=== PATIENT | female | born 1990 | race Caucasian/White ===

== ENCOUNTER 2017-04-04 20:24 | Emergency (ER) | payer SELFPAY ==
[~2017-04-04] VITALS: Ht 162.6 cm; Wt 60.0 kg
[2017-04-04 21:39] VITALS: Ht 162.6 cm; Wt 60.0 kg
[2017-04-04] MEDS ORDERED: SOD CHLORIDE 0.9% 1,000 ML IV STA (22:23)
[2017-04-04] MEDS ORDERED: ACETAMINOPHEN 500 MG TAB PO STA (22:23)
[2017-04-04] MEDS ORDERED: LIDOCAINE/MYLANTA 40 ML BTL PO ONE (23:00)
--- NOTE | 2017-04-04 23:54 | RADRPT ---
PROCEDURE: XR Chest. CLINICAL INDICATION: Fever. TECHNIQUE: Portable AP upright view of the chest was obtained. COMPARISON: None. FINDINGS: The cardiomediastinal silhouette is within normal limits. The lungs are clear. There is no evidenc e for pleural effusion, pneumothorax or pulmonary vascular congestion. The osseous structures are i ntact with no evidence for acute abnormality. RPTAT:HJJR IMPRESSION: No evidence for acute intrathoracic pathology. Physician Danisha Date Time Electronically viewed and signed by Physician Danisha on 04/04/2017 23:54 JR/
[2017-04-05] MEDS ORDERED: IBUP-1542 PO (00:03)
[2017-04-05] MEDS ORDERED: AZIT250T94 PO (00:03)
[2017-04-05 00:09] VITALS: TEMP 98
--- NOTE | 2017-04-10 17:43 | ERD ---
ER Documentation Chief Complaint Chief Complaint SORE THROAT, BODY ACHES, FEVER SINCE YESTERDAY. SENT FROM URGENT CARE HPI Patient is a 27-year-old female presenting to the emergency department with complaints of sore throat, body aches, and fever. The patient went to an urgent care prior to coming here and was sent over for high fever. Patient's symptoms are constant and worsening. Symptoms began yesterday. She denies other times at this time. ROS All systems reviewed and are negative except as per history of present illness. Medications Home Meds Active Scripts Ranitidine Hcl* (Zantac*) 150 Mg Tablet, 150 MG PO BID Y for EPIGASTRIC PAIN, # 30 TAB Prov:CASSIA COPELAND PA-C 04/10/17 Dicyclomine Hcl* (Bentyl*) 10 Mg Capsule, 10 MG PO QID, #20 CAP Prov:CASSIA COPELAND PA-C 04/10/17 Ondansetron (Ondansetron Odt) 4 Mg Tab.rapdis, 4 MG PO Q6H Y for NAUSEA AND/OR VOMITING, #10 TAB Prov:CASSIA COPELAND PA-C 04/10/17 Ibuprofen* (Motrin*) 600 Mg Tab, 600 MG PO Q6, #30 TAB Prov:CINDY CURRAN PA-C 04/05/17 Azithromycin* (Zithromax*) 250 Mg Tablet, 250 MG PO .ZPACK DIRECTED, #6 TAB TAKE 500 MG (2 TABS) THE FIRST DAY THEN 250 MG (1 TAB) DAYS 2-5 Prov:CINDY CURRAN PA-C 04/05/17 Allergies Allergies: Coded Allergies: epinephrine (Verified Allergy, Unknown, 04/04/17) PMhx/Soc Medical and Surgical Hx: pt denies Medical Hx, pt denies Surgical Hx Hx Alcohol Use: No Hx Substance Use: No Hx Tobacco Use: No Smoking Status: Never smoker Physical Exam Physical Exam Const: Febrile female resting in the gurney in no acute distress. Head: Atraumatic Eyes: Normal Conjunctiva ENT: Normal External Ears, Nose and Mouth. There is mild tonsillar hypertrophy with erythema but no exudate present. The airway is clear. No uvular deviation. Neck: Full range of motion..~ No meningismus. Resp: Clear to auscultation bilaterally Cardio: Regular rate and rhythm, no murmurs Abd: Soft, non tender, non distended. Normal bowel sounds Skin: No petechiae or rashes Back: No midline or flank tenderness Ext: No cyanosis, or edema Neur: Awake and alert Psych: Normal Mood and Affect Results 24 hrs Laboratory Tests Test 04/04/17 22:40 White Blood Count 16.910^3/ul Red Blood Count 4.4410^6/ul Hemoglobin 12.0g/dl Hematocrit 37.2% Mean Corpuscular Volume 83.8fl Mean Corpuscular Hemoglobin 27.0pg Mean Corpuscular Hemoglobin Concent 32.3g/dl Red Cell Distribution Width 14.3% Platelet Count 97297^3/UL Mean Platelet Volume 10.4fl Neutrophils % 84.1% Lymphocytes % 8.9% Monocytes % 6.3% Eosinophils % 0.0% Basophils % 0.2% Nucleated Red Blood Cells % 0.0/100WBC Neutrophils # 14.210^3/ul Lymphocytes # 1.510^3/ul Monocytes # 1.110^3/ul Eosinophils # 0.010^3/ul Basophils # 0.010^3/ul Nucleated Red Blood Cells # 0.010^3/ul Urine Color YELLOW Urine Clarity SLIGHTLY CLOUDY Urine pH 7.0 Urine Specific [place] 1.019 Urine Ketones 1+mg/dL Urine Nitrite NEGATIVEmg/dL Urine Bilirubin NEGATIVEmg/dL Urine Urobilinogen NEGATIVEmg/dL Urine Leukocyte Esterase NEGATIVELeu/ul Urine Microscopic RBC 6/HPF Urine Microscopic WBC 18/HPF Urine Squamous Epithelial Cells FEW/HPF Urine Bacteria FEW/HPF Urine Mucus FEW/HPF Urine Hemoglobin 1+mg/dL Urine Glucose NEGATIVEmg/dL Urine Total Protein 1+mg/dl Sodium Level 138mmol/L Potassium Level 3.2mmol/L Chloride Level 101mmol/L Carbon Dioxide Level 22mmol/L Anion Gap 18 Blood Urea Nitrogen 9mg/dl Creatinine 0.85mg/dl Glucose Level 114mg/dl Calcium Level 9.1mg/dl Total Bilirubin 0.2mg/dl Direct Bilirubin 0.00mg/dl Indirect Bilirubin 0.2mg/dl Aspartate Amino Transf (AST/SGOT) 23IU/L Alanine Aminotransferase (ALT/SGPT) 28IU/L Alkaline Phosphatase 136IU/L Total Protein 7.8g/dl Albumin 4.3g/dl Globulin 3.50g/dl Albumin/Globulin Ratio 1.22 Current Medications Medications (Trade) Dose Ordered Sig/Nani Route PRN Reason Start Time Stop Time Status Last Admin Dose Admin Sodium Chloride (NS) 1,000 ml @ 1,000 mls/hr Q1H STAT IV 04/04/17 22:23 04/04/17 23:22 DC 04/04/17 22:52 Acetaminophen (Tylenol Tab) 1,000 mg ONCE STAT PO 04/04/17 22:23 04/04/17 22:26 DC 04/04/17 22:52 Miscellaneous Medication (Gi Cocktail (2)) 40 ml ONCE ONCE PO 04/04/17 23:00 04/04/17 23:28 DC Procedures/MDM 27-year-old female presenting to the emergency department complaints of fever, body aches, and sore throat. Patient was found to have a temperature of 105.5 F on initial presentation she was also tachycardic. She was placed on a gurney. IV line established, she was given IV fluids and p.o. Tylenol. She was feeling improved on reevaluation and her temperature decreased. Laboratory studies showed leukocytosis on CBC with a left shift. Chemistry panel showed slightly decreased potassium of 3.2, but not significant. No other significant abnormalities noted on chemistry panel. Urinalysis showed no signs of infection. Chest x-ray showed no signs of acute intrathoracic pathology. Rapid strep is negative. Influenza a and B swab negative. Patient's symptoms are likely secondary to a viral syndrome. However, given her high fever and erythematous posterior pharynx, I will give her a prescription for antibiotics. She is also advised to take Tylenol and ibuprofen for fever. Pt/family in agreement with discharge plan/diagnosis. Pt/family advised to return immediately with any new or worsening symptoms. Follow-up with primary care physician within the next 1-2 days. Disclaimer: Inadvertent spelling and grammatical errors are likely due to EHR/ dictation software use and do not reflect on the overall quality of patient care. Also, please note that the electronic time recorded on this note does not necessarily reflect the actual time of the patient encounter. PROCEDURE: XR Chest. CLINICAL INDICATION: Fever. TECHNIQUE: Portable AP upright view of the chest was obtained. COMPARISON: None. FINDINGS: The cardiomediastinal silhouette is within normal limits. The lungs are clear. There is no evidence for pleural effusion, pneumothorax or pulmonary vascular congestion. The osseous structures are intact with no evidence for acute abnormality. RPTAT:HJJR IMPRESSION: No evidence for acute intrathoracic pathology. Physician Danisha Date Time Electronically viewed and signed by Eduardo Diaz Physician on 04/04/2017 23:54 Departure Diagnosis: Primary Impression: Pharyngitis Pharyngitis/tonsillitis etiology: unspecified etiology Qualified Code: J02.9 - Pharyngitis, unspecified etiology Condition: Fair Patient Instructions: Pharyngitis, Report Pending Referrals: [facility] YOU HAVE RECEIVED A MEDICAL SCREENING EXAM AND THE RESULTS INDICATE THAT YOU DO NOT HAVE A CONDITION THAT REQUIRES URGENT TREATMENT IN THE EMERGENCY DEPARTMENT. FURTHER EVALUATION AND TREATMENT OF YOUR CONDITION CAN WAIT UNTIL YOU ARE SEEN IN YOUR DOCTORS OFFICE WITHIN THE NEXT 1-2 DAYS. IT IS YOUR RESPONSIBILITY TO MAKE AN APPOINTMENT FOR FOLOW-UP CARE. IF YOU HAVE A PRIMARY DOCTOR --you should call your primary doctor and schedule an appointment IF YOU DO NOT HAVE A PRIMARY DOCTOR YOU CAN CALL OUR PHYSICIAN REFERRAL HOTLINE AT IF YOU CAN NOT AFFORD TO SEE A PHYSICIAN YOU CAN CHOSE FROM THE FOLLOWING [facility] [address] [facility] [facility] [address] [facility] [address] [facility]. [facility] [address] [facility]. [facility] [address] [facility]. [facility]. [address] Additional Instructions: Follow up with your PCP within the next 1-3 days for a repeat evaluation. If you require a referral to a specialist, your Primary Care Provider may be able to provide this for you. In most patient cases, a referral is not required. If you have further questions regarding this matter, please ask your Primary Care Provider. Return the the emergency department immediately if symptoms worsen or change. If you have any questions regarding medications, ask your pharmacist or us before you leave. If any adverse reactions, occur while taking your medications, discontinue the treatment and return to the emergency department immediately. If any new or worsening symptoms, uncontrolled fevers, or other unexplained symptoms occur, return to the emergency department immediately. Take your medications as directed, and complete the entire course of treatment. CINDY CURRAN PA-C Apr 10, 2017 17:43
--- NOTE | 2017-04-10 17:43 | ERD ---
ER Documentation Chief Complaint Chief Complaint SORE THROAT, BODY ACHES, FEVER SINCE YESTERDAY. SENT FROM URGENT CARE HPI Patient is a 27-year-old female presenting to the emergency department with complaints of sore throat, body aches, and fever. The patient went to an urgent care prior to coming here and was sent over for high fever. Patient's symptoms are constant and worsening. Symptoms began yesterday. She denies other times at this time. ROS All systems reviewed and are negative except as per history of present illness. Medications Home Meds Active Scripts Ranitidine Hcl* (Zantac*) 150 Mg Tablet, 150 MG PO BID Y for EPIGASTRIC PAIN, # 30 TAB Prov:CASSIA COPELAND PA-C 04/10/17 Dicyclomine Hcl* (Bentyl*) 10 Mg Capsule, 10 MG PO QID, #20 CAP Prov:CASSIA COPELAND PA-C 04/10/17 Ondansetron (Ondansetron Odt) 4 Mg Tab.rapdis, 4 MG PO Q6H Y for NAUSEA AND/OR VOMITING, #10 TAB Prov:CASSIA COPELAND PA-C 04/10/17 Ibuprofen* (Motrin*) 600 Mg Tab, 600 MG PO Q6, #30 TAB Prov:CINDY CURRAN PA-C 04/05/17 Azithromycin* (Zithromax*) 250 Mg Tablet, 250 MG PO .ZPACK DIRECTED, #6 TAB TAKE 500 MG (2 TABS) THE FIRST DAY THEN 250 MG (1 TAB) DAYS 2-5 Prov:CINDY CURRAN PA-C 04/05/17 Allergies Allergies: Coded Allergies: epinephrine (Verified Allergy, Unknown, 04/04/17) PMhx/Soc Medical and Surgical Hx: pt denies Medical Hx, pt denies Surgical Hx Hx Alcohol Use: No Hx Substance Use: No Hx Tobacco Use: No Smoking Status: Never smoker Physical Exam Physical Exam Const: Febrile female resting in the gurney in no acute distress. Head: Atraumatic Eyes: Normal Conjunctiva ENT: Normal External Ears, Nose and Mouth. There is mild tonsillar hypertrophy with erythema but no exudate present. The airway is clear. No uvular deviation. Neck: Full range of motion..~ No meningismus. Resp: Clear to auscultation bilaterally Cardio: Regular rate and rhythm, no murmurs Abd: Soft, non tender, non distended. Normal bowel sounds Skin: No petechiae or rashes Back: No midline or flank tenderness Ext: No cyanosis, or edema Neur: Awake and alert Psych: Normal Mood and Affect Results 24 hrs Laboratory Tests Test 04/04/17 22:40 White Blood Count 16.910^3/ul Red Blood Count 4.4410^6/ul Hemoglobin 12.0g/dl Hematocrit 37.2% Mean Corpuscular Volume 83.8fl Mean Corpuscular Hemoglobin 27.0pg Mean Corpuscular Hemoglobin Concent 32.3g/dl Red Cell Distribution Width 14.3% Platelet Count 72276^3/UL Mean Platelet Volume 10.4fl Neutrophils % 84.1% Lymphocytes % 8.9% Monocytes % 6.3% Eosinophils % 0.0% Basophils % 0.2% Nucleated Red Blood Cells % 0.0/100WBC Neutrophils # 14.210^3/ul Lymphocytes # 1.510^3/ul Monocytes # 1.110^3/ul Eosinophils # 0.010^3/ul Basophils # 0.010^3/ul Nucleated Red Blood Cells # 0.010^3/ul Urine Color YELLOW Urine Clarity SLIGHTLY CLOUDY Urine pH 7.0 Urine Specific Pride 1.019 Urine Ketones 1+mg/dL Urine Nitrite NEGATIVEmg/dL Urine Bilirubin NEGATIVEmg/dL Urine Urobilinogen NEGATIVEmg/dL Urine Leukocyte Esterase NEGATIVELeu/ul Urine Microscopic RBC 6/HPF Urine Microscopic WBC 18/HPF Urine Squamous Epithelial Cells FEW/HPF Urine Bacteria FEW/HPF Urine Mucus FEW/HPF Urine Hemoglobin 1+mg/dL Urine Glucose NEGATIVEmg/dL Urine Total Protein 1+mg/dl Sodium Level 138mmol/L Potassium Level 3.2mmol/L Chloride Level 101mmol/L Carbon Dioxide Level 22mmol/L Anion Gap 18 Blood Urea Nitrogen 9mg/dl Creatinine 0.85mg/dl Glucose Level 114mg/dl Calcium Level 9.1mg/dl Total Bilirubin 0.2mg/dl Direct Bilirubin 0.00mg/dl Indirect Bilirubin 0.2mg/dl Aspartate Amino Transf (AST/SGOT) 23IU/L Alanine Aminotransferase (ALT/SGPT) 28IU/L Alkaline Phosphatase 136IU/L Total Protein 7.8g/dl Albumin 4.3g/dl Globulin 3.50g/dl Albumin/Globulin Ratio 1.22 Current Medications Medications (Trade) Dose Ordered Sig/Nani Route PRN Reason Start Time Stop Time Status Last Admin Dose Admin Sodium Chloride (NS) 1,000 ml @ 1,000 mls/hr Q1H STAT IV 04/04/17 22:23 04/04/17 23:22 DC 04/04/17 22:52 Acetaminophen (Tylenol Tab) 1,000 mg ONCE STAT PO 04/04/17 22:23 04/04/17 22:26 DC 04/04/17 22:52 Miscellaneous Medication (Gi Cocktail (2)) 40 ml ONCE ONCE PO 04/04/17 23:00 04/04/17 23:28 DC Procedures/MDM 27-year-old female presenting to the emergency department complaints of fever, body aches, and sore throat. Patient was found to have a temperature of 105.5 F on initial presentation she was also tachycardic. She was placed on a gurney. IV line established, she was given IV fluids and p.o. Tylenol. She was feeling improved on reevaluation and her temperature decreased. Laboratory studies showed leukocytosis on CBC with a left shift. Chemistry panel showed slightly decreased potassium of 3.2, but not significant. No other significant abnormalities noted on chemistry panel. Urinalysis showed no signs of infection. Chest x-ray showed no signs of acute intrathoracic pathology. Rapid strep is negative. Influenza a and B swab negative. Patient's symptoms are likely secondary to a viral syndrome. However, given her high fever and erythematous posterior pharynx, I will give her a prescription for antibiotics. She is also advised to take Tylenol and ibuprofen for fever. Pt/family in agreement with discharge plan/diagnosis. Pt/family advised to return immediately with any new or worsening symptoms. Follow-up with primary care physician within the next 1-2 days. Disclaimer: Inadvertent spelling and grammatical errors are likely due to EHR/ dictation software use and do not reflect on the overall quality of patient care. Also, please note that the electronic time recorded on this note does not necessarily reflect the actual time of the patient encounter. PROCEDURE: XR Chest. CLINICAL INDICATION: Fever. TECHNIQUE: Portable AP upright view of the chest was obtained. COMPARISON: None. FINDINGS: The cardiomediastinal silhouette is within normal limits. The lungs are clear. There is no evidence for pleural effusion, pneumothorax or pulmonary vascular congestion. The osseous structures are intact with no evidence for acute abnormality. RPTAT:HJJR IMPRESSION: No evidence for acute intrathoracic pathology. Physician Danisha Date Time Electronically viewed and signed by Eduardo Diaz Physician on 04/04/2017 23:54 Departure Diagnosis: Primary Impression: Pharyngitis Pharyngitis/tonsillitis etiology: unspecified etiology Qualified Code: J02.9 - Pharyngitis, unspecified etiology Condition: Fair Patient Instructions: Pharyngitis, Report Pending Referrals: [facility] YOU HAVE RECEIVED A MEDICAL SCREENING EXAM AND THE RESULTS INDICATE THAT YOU DO NOT HAVE A CONDITION THAT REQUIRES URGENT TREATMENT IN THE EMERGENCY DEPARTMENT. FURTHER EVALUATION AND TREATMENT OF YOUR CONDITION CAN WAIT UNTIL YOU ARE SEEN IN YOUR DOCTORS OFFICE WITHIN THE NEXT 1-2 DAYS. IT IS YOUR RESPONSIBILITY TO MAKE AN APPOINTMENT FOR FOLOW-UP CARE. IF YOU HAVE A PRIMARY DOCTOR --you should call your primary doctor and schedule an appointment IF YOU DO NOT HAVE A PRIMARY DOCTOR YOU CAN CALL OUR PHYSICIAN REFERRAL HOTLINE AT IF YOU CAN NOT AFFORD TO SEE A PHYSICIAN YOU CAN CHOSE FROM THE FOLLOWING [facility] [address] [facility]. [facility] [address] [facility]. [facility] [address] [facility] [address] [facility]. [facility] [address] [facility]. [facility]. [address] Additional Instructions: Follow up with your PCP within the next 1-3 days for a repeat evaluation. If you require a referral to a specialist, your Primary Care Provider may be able to provide this for you. In most patient cases, a referral is not required. If you have further questions regarding this matter, please ask your Primary Care Provider. Return the the emergency department immediately if symptoms worsen or change. If you have any questions regarding medications, ask your pharmacist or us before you leave. If any adverse reactions, occur while taking your medications, discontinue the treatment and return to the emergency department immediately. If any new or worsening symptoms, uncontrolled fevers, or other unexplained symptoms occur, return to the emergency department immediately. Take your medications as directed, and complete the entire course of treatment. CINDY CURRAN PA-C Apr 10, 2017 17:43
--- NOTE | 2017-04-10 17:43 | ERD ---
ER Documentation Chief Complaint Chief Complaint SORE THROAT, BODY ACHES, FEVER SINCE YESTERDAY. SENT FROM URGENT CARE HPI Patient is a 27-year-old female presenting to the emergency department with complaints of sore throat, body aches, and fever. The patient went to an urgent care prior to coming here and was sent over for high fever. Patient's symptoms are constant and worsening. Symptoms began yesterday. She denies other times at this time. ROS All systems reviewed and are negative except as per history of present illness. Medications Home Meds Active Scripts Ranitidine Hcl* (Zantac*) 150 Mg Tablet, 150 MG PO BID Y for EPIGASTRIC PAIN, # 30 TAB Prov:CASSIA COPELAND PA-C 04/10/17 Dicyclomine Hcl* (Bentyl*) 10 Mg Capsule, 10 MG PO QID, #20 CAP Prov:CASSIA COPELAND PA-C 04/10/17 Ondansetron (Ondansetron Odt) 4 Mg Tab.rapdis, 4 MG PO Q6H Y for NAUSEA AND/OR VOMITING, #10 TAB Prov:CASSIA COPELAND PA-C 04/10/17 Ibuprofen* (Motrin*) 600 Mg Tab, 600 MG PO Q6, #30 TAB Prov:CINDY CURRAN PA-C 04/05/17 Azithromycin* (Zithromax*) 250 Mg Tablet, 250 MG PO .ZPACK DIRECTED, #6 TAB TAKE 500 MG (2 TABS) THE FIRST DAY THEN 250 MG (1 TAB) DAYS 2-5 Prov:CINDY CURRAN PA-C 04/05/17 Allergies Allergies: Coded Allergies: epinephrine (Verified Allergy, Unknown, 04/04/17) PMhx/Soc Medical and Surgical Hx: pt denies Medical Hx, pt denies Surgical Hx Hx Alcohol Use: No Hx Substance Use: No Hx Tobacco Use: No Smoking Status: Never smoker Physical Exam Physical Exam Const: Febrile female resting in the gurney in no acute distress. Head: Atraumatic Eyes: Normal Conjunctiva ENT: Normal External Ears, Nose and Mouth. There is mild tonsillar hypertrophy with erythema but no exudate present. The airway is clear. No uvular deviation. Neck: Full range of motion..~ No meningismus. Resp: Clear to auscultation bilaterally Cardio: Regular rate and rhythm, no murmurs Abd: Soft, non tender, non distended. Normal bowel sounds Skin: No petechiae or rashes Back: No midline or flank tenderness Ext: No cyanosis, or edema Neur: Awake and alert Psych: Normal Mood and Affect Results 24 hrs Laboratory Tests Test 04/04/17 22:40 White Blood Count 16.910^3/ul Red Blood Count 4.4410^6/ul Hemoglobin 12.0g/dl Hematocrit 37.2% Mean Corpuscular Volume 83.8fl Mean Corpuscular Hemoglobin 27.0pg Mean Corpuscular Hemoglobin Concent 32.3g/dl Red Cell Distribution Width 14.3% Platelet Count 52619^3/UL Mean Platelet Volume 10.4fl Neutrophils % 84.1% Lymphocytes % 8.9% Monocytes % 6.3% Eosinophils % 0.0% Basophils % 0.2% Nucleated Red Blood Cells % 0.0/100WBC Neutrophils # 14.210^3/ul Lymphocytes # 1.510^3/ul Monocytes # 1.110^3/ul Eosinophils # 0.010^3/ul Basophils # 0.010^3/ul Nucleated Red Blood Cells # 0.010^3/ul Urine Color YELLOW Urine Clarity SLIGHTLY CLOUDY Urine pH 7.0 Urine Specific [place] 1.019 Urine Ketones 1+mg/dL Urine Nitrite NEGATIVEmg/dL Urine Bilirubin NEGATIVEmg/dL Urine Urobilinogen NEGATIVEmg/dL Urine Leukocyte Esterase NEGATIVELeu/ul Urine Microscopic RBC 6/HPF Urine Microscopic WBC 18/HPF Urine Squamous Epithelial Cells FEW/HPF Urine Bacteria FEW/HPF Urine Mucus FEW/HPF Urine Hemoglobin 1+mg/dL Urine Glucose NEGATIVEmg/dL Urine Total Protein 1+mg/dl Sodium Level 138mmol/L Potassium Level 3.2mmol/L Chloride Level 101mmol/L Carbon Dioxide Level 22mmol/L Anion Gap 18 Blood Urea Nitrogen 9mg/dl Creatinine 0.85mg/dl Glucose Level 114mg/dl Calcium Level 9.1mg/dl Total Bilirubin 0.2mg/dl Direct Bilirubin 0.00mg/dl Indirect Bilirubin 0.2mg/dl Aspartate Amino Transf (AST/SGOT) 23IU/L Alanine Aminotransferase (ALT/SGPT) 28IU/L Alkaline Phosphatase 136IU/L Total Protein 7.8g/dl Albumin 4.3g/dl Globulin 3.50g/dl Albumin/Globulin Ratio 1.22 Current Medications Medications (Trade) Dose Ordered Sig/Nani Route PRN Reason Start Time Stop Time Status Last Admin Dose Admin Sodium Chloride (NS) 1,000 ml @ 1,000 mls/hr Q1H STAT IV 04/04/17 22:23 04/04/17 23:22 DC 04/04/17 22:52 Acetaminophen (Tylenol Tab) 1,000 mg ONCE STAT PO 04/04/17 22:23 04/04/17 22:26 DC 04/04/17 22:52 Miscellaneous Medication (Gi Cocktail (2)) 40 ml ONCE ONCE PO 04/04/17 23:00 04/04/17 23:28 DC Procedures/MDM 27-year-old female presenting to the emergency department complaints of fever, body aches, and sore throat. Patient was found to have a temperature of 105.5 F on initial presentation she was also tachycardic. She was placed on a gurney. IV line established, she was given IV fluids and p.o. Tylenol. She was feeling improved on reevaluation and her temperature decreased. Laboratory studies showed leukocytosis on CBC with a left shift. Chemistry panel showed slightly decreased potassium of 3.2, but not significant. No other significant abnormalities noted on chemistry panel. Urinalysis showed no signs of infection. Chest x-ray showed no signs of acute intrathoracic pathology. Rapid strep is negative. Influenza a and B swab negative. Patient's symptoms are likely secondary to a viral syndrome. However, given her high fever and erythematous posterior pharynx, I will give her a prescription for antibiotics. She is also advised to take Tylenol and ibuprofen for fever. Pt/family in agreement with discharge plan/diagnosis. Pt/family advised to return immediately with any new or worsening symptoms. Follow-up with primary care physician within the next 1-2 days. Disclaimer: Inadvertent spelling and grammatical errors are likely due to EHR/ dictation software use and do not reflect on the overall quality of patient care. Also, please note that the electronic time recorded on this note does not necessarily reflect the actual time of the patient encounter. PROCEDURE: XR Chest. CLINICAL INDICATION: Fever. TECHNIQUE: Portable AP upright view of the chest was obtained. COMPARISON: None. FINDINGS: The cardiomediastinal silhouette is within normal limits. The lungs are clear. There is no evidence for pleural effusion, pneumothorax or pulmonary vascular congestion. The osseous structures are intact with no evidence for acute abnormality. RPTAT:HJJR IMPRESSION: No evidence for acute intrathoracic pathology. Physician Danisha Date Time Electronically viewed and signed by Eduardo Diaz Physician on 04/04/2017 23:54 Departure Diagnosis: Primary Impression: Pharyngitis Pharyngitis/tonsillitis etiology: unspecified etiology Qualified Code: J02.9 - Pharyngitis, unspecified etiology Condition: Fair Patient Instructions: Pharyngitis, Report Pending Referrals: [facility] YOU HAVE RECEIVED A MEDICAL SCREENING EXAM AND THE RESULTS INDICATE THAT YOU DO NOT HAVE A CONDITION THAT REQUIRES URGENT TREATMENT IN THE EMERGENCY DEPARTMENT. FURTHER EVALUATION AND TREATMENT OF YOUR CONDITION CAN WAIT UNTIL YOU ARE SEEN IN YOUR DOCTORS OFFICE WITHIN THE NEXT 1-2 DAYS. IT IS YOUR RESPONSIBILITY TO MAKE AN APPOINTMENT FOR FOLOW-UP CARE. IF YOU HAVE A PRIMARY DOCTOR --you should call your primary doctor and schedule an appointment IF YOU DO NOT HAVE A PRIMARY DOCTOR YOU CAN CALL OUR PHYSICIAN REFERRAL HOTLINE AT IF YOU CAN NOT AFFORD TO SEE A PHYSICIAN YOU CAN CHOSE FROM THE FOLLOWING [facility] [address] [facility]. [facility] [address] [facility] [address]. [facility] [address] [facility] [address] [facility]. [facility]. [address] Additional Instructions: Follow up with your PCP within the next 1-3 days for a repeat evaluation. If you require a referral to a specialist, your Primary Care Provider may be able to provide this for you. In most patient cases, a referral is not required. If you have further questions regarding this matter, please ask your Primary Care Provider. Return the the emergency department immediately if symptoms worsen or change. If you have any questions regarding medications, ask your pharmacist or us before you leave. If any adverse reactions, occur while taking your medications, discontinue the treatment and return to the emergency department immediately. If any new or worsening symptoms, uncontrolled fevers, or other unexplained symptoms occur, return to the emergency department immediately. Take your medications as directed, and complete the entire course of treatment. CINDY CURRAN PA-C Apr 10, 2017 17:43
== END 2017-04-05 00:09 | disposition home or self-care (01) ==
LOC: FTE 20:24
DX: J02.9 Acute pharyngitis, unspecified (principal); R50.9 Fever, unspecified
CPT/HCPCS: 36415; 71010; 80053; 81001; 85025; 87400; 87880; 99284; J7030

== ENCOUNTER 2017-04-10 10:53 | Emergency (ER) | payer SELFPAY ==
[~2017-04-10] VITALS: Ht 162.6 cm; Wt 57.5 kg
[~2017-04-10 10:53] MED LIST: AZIT250T94 PO; IBUP-1542 PO
[2017-04-10 11:01] VITALS: Ht 162.6 cm; Wt 57.5 kg
[2017-04-10] MEDS ORDERED: SOD CHLORIDE 0.9% 1,000 ML IV STA (11:56)
[2017-04-10] MEDS ORDERED: morphine 2 MG INJ IV STA (11:56)
[2017-04-10] MEDS ORDERED: ONDANSETRON 4 MG INJ IV STA ×2 (11:56→13:40)
[2017-04-10 12:29] LABS: BASOPHILS % 0.4 % (0.0-2.0); EOSINOPHILS # 0.1 10^3/ul (0.0-0.5); EOSINOPHILS % 0.6 % (0.0-7.0); HEMATOCRIT 41.6 % (37.0-47.0); HEMOGLOBIN 13.2 g/dl (12.0-16.0); LYMPHOCYTES # 1.1 10^3/ul (0.8-2.9); LYMPHOCYTES % 10.2 % (15.0-51.0); MEAN CORPUSCULAR HEMOGLOBIN 26.7 pg (29.0-33.0); MEAN CORPUSCULAR HGB CONC 31.7 g/dl (32.0-37.0); MEAN PLATELET VOLUME 9.8 fl (7.4-10.4); MONOCYTE # 0.4 10^3/ul (0.3-0.9); MONOCYTES % 3.7 % (0.0-11.0); NEUTROPHIL # 8.8 10^3/ul (1.6-7.5); NEUTROPHILS % 84.7 % (39.0-77.0); PLATELET COUNT 368 10^3/UL (140-415); RED BLOOD COUNT 4.95 10^6/ul (4.20-5.40); RED CELL DISTRIBUTION WIDTH 14.3 % (11.5-14.5); WHITE BLOOD COUNT 10.4 10^3/ul (4.8-10.8)
[2017-04-10] MEDS ORDERED: FAMOTIDINE 20 MG INJ IV ONE (12:30)
[2017-04-10 12:48] LABS: ALBUMIN/GLOBULIN RATIO 1.35; BILIRUBIN,INDIRECT 0.3 mg/dl (0-1.1); BILIRUBIN,TOTAL 0.3 mg/dl (0.2-1.3); CREATININE 0.69 mg/dl (0.44-1.00); POTASSIUM 4.4 mmol/L (3.5-5.1); TOTAL PROTEIN 8.7 g/dl (6.1-8.1)
--- NOTE | 2017-04-10 12:55 | ERD ---
ER Documentation Chief Complaint Chief Complaint ap w/n/v/d x1 day HPI 27-year-old female presents with mid abdominal pain described as sharp, colicky with nausea, vomiting and diarrhea over the last 2-3 days. The patient was seen here several days ago and was referred from the urgent care due to high fever, she had a fever of 105 and had a workup done and was treated presumptively with a Z-Tai and she is no longer been febrile. She reports up to 5 episodes of nonbloody nonbilious emesis each day up to 2-3 episodes of diarrhea that are nonbloody non-mucousy. Pain is in the mid abdomen, goes through the left upper quadrant is intermittent and worse after eating. She denies chest pain, shortness of breath. ROS All systems reviewed and are negative except as per history of present illness. Medications Home Meds Active Scripts Ranitidine Hcl* (Zantac*) 150 Mg Tablet, 150 MG PO BID Y for EPIGASTRIC PAIN, # 30 TAB Prov:CASSIA COPELAND PA-C 04/10/17 Dicyclomine Hcl* (Bentyl*) 10 Mg Capsule, 10 MG PO QID, #20 CAP Prov:CASSIA COPELAND PA-C 04/10/17 Ondansetron (Ondansetron Odt) 4 Mg Tab.rapdis, 4 MG PO Q6H Y for NAUSEA AND/OR VOMITING, #10 TAB Prov:CASSIA COPELAND PA-C 04/10/17 Ibuprofen* (Motrin*) 600 Mg Tab, 600 MG PO Q6, #30 TAB Prov:CINDY CURRAN PA-C 04/05/17 Azithromycin* (Zithromax*) 250 Mg Tablet, 250 MG PO .ZPACK DIRECTED, #6 TAB TAKE 500 MG (2 TABS) THE FIRST DAY THEN 250 MG (1 TAB) DAYS 2-5 Prov:CINDY CURRAN PA-C 04/05/17 Allergies Allergies: Coded Allergies: epinephrine (Verified Allergy, Unknown, 04/04/17) PMhx/Soc Medical and Surgical Hx: pt denies Medical Hx, pt denies Surgical Hx Hx Alcohol Use: No Hx Substance Use: No Hx Tobacco Use: No Physical Exam Vitals Vital Signs Date Time Temp Pulse Resp B/P Pulse Ox O2 Delivery O2 Flow Rate FiO2 04/10/17 11:01 99.0 110 20 121/77 99 Physical Exam General: Well-developed, well-nourished. The patient appears in no acute distress. HEENT: Head is normocephalic, atraumatic. No scleral icterus. Neck: Supple. Nontender. Lungs: Clear to auscultation. Normal air movement. Heart: Regular rate and rhythm. S1 and S2 are normal. No murmurs, gallops, or rubs. Abdomen: Soft, mid and left upper quadrant is tender, there are no peritoneal signs, no masses, no hepatosplenomegaly, negative Nicolas sign, no McBurney's tenderness, nondistended. Bowel sounds are normoactive. Extremities: No clubbing or cyanosis. Normal pulses. Moving extremities x 4. No weakness. Neurologic: Alert and oriented 3. No focal deficits. Skin: Normal turgor. No rash or lesions. Result Diagram: 04/10/17 1215 04/10/17 1215 Results 24 hrs Laboratory Tests Test 04/10/17 12:15 04/10/17 13:45 White Blood Count 10.410^3/ul Red Blood Count 4.9510^6/ul Hemoglobin 13.2g/dl Hematocrit 41.6% Mean Corpuscular Volume 84.0fl Mean Corpuscular Hemoglobin 26.7pg Mean Corpuscular Hemoglobin Concent 31.7g/dl Red Cell Distribution Width 14.3% Platelet Count 95922^3/UL Mean Platelet Volume 9.8fl Neutrophils % 84.7% Lymphocytes % 10.2% Monocytes % 3.7% Eosinophils % 0.6% Basophils % 0.4% Nucleated Red Blood Cells % 0.0/100WBC Neutrophils # 8.810^3/ul Lymphocytes # 1.110^3/ul Monocytes # 0.410^3/ul Eosinophils # 0.110^3/ul Basophils # 0.010^3/ul Nucleated Red Blood Cells # 0.010^3/ul Sodium Level 143mmol/L Potassium Level 4.4mmol/L Chloride Level 103mmol/L Carbon Dioxide Level 24mmol/L Anion Gap 20 Blood Urea Nitrogen 9mg/dl Creatinine 0.69mg/dl Glucose Level 97mg/dl Calcium Level 10.0mg/dl Total Bilirubin 0.3mg/dl Direct Bilirubin 0.00mg/dl Indirect Bilirubin 0.3mg/dl Aspartate Amino Transf (AST/SGOT) 20IU/L Alanine Aminotransferase (ALT/SGPT) 28IU/L Alkaline Phosphatase 144IU/L Total Protein 8.7g/dl Albumin 5.0g/dl Globulin 3.70g/dl Albumin/Globulin Ratio 1.35 Lipase 170U/L Serum HCG, Qualitative NEGATIVE Urine Color YELLOW Urine Clarity CLEAR Urine pH 7.0 Urine Specific [place] 1.014 Urine Ketones TRACEmg/dL Urine Nitrite NEGATIVEmg/dL Urine Bilirubin NEGATIVEmg/dL Urine Urobilinogen NEGATIVEmg/dL Urine Leukocyte Esterase NEGATIVELeu/ul Urine Hemoglobin NEGATIVEmg/dL Urine Glucose NEGATIVEmg/dL Urine Total Protein NEGATIVEmg/dl Current Medications Medications (Trade) Dose Ordered Sig/Nani Route PRN Reason Start Time Stop Time Status Last Admin Dose Admin Sodium Chloride (NS) 1,000 ml @ 1,000 mls/hr Q1H STAT IV 04/10/17 11:56 04/10/17 12:55 DC 04/10/17 12:27 Morphine Sulfate (morphine) 2 mg ONCE STAT IV 04/10/17 11:56 04/10/17 12:26 DC Ondansetron HCl (Zofran Inj) 4 mg ONCE STAT IV 04/10/17 11:56 04/10/17 11:57 DC 04/10/17 12:27 Famotidine (Pepcid Iv) 20 mg ONCE ONCE IV 04/10/17 12:30 04/10/17 12:31 DC 04/10/17 12:30 Miscellaneous Medication (Gi Cocktail (2)) 40 ml ONCE ONCE PO 04/10/17 14:00 04/10/17 14:01 DC 04/10/17 13:48 Ondansetron HCl (Zofran Inj) 4 mg ONCE STAT IV 04/10/17 13:40 04/10/17 13:41 DC 04/10/17 13:48 DIAGNOSTIC IMAGING REPORT Patient: PATIENCE MORRISSEY : 1990 Age: 27 Sex: F MR #: [id number] DOS: 04/10/17 1201 Ordering MD: CASSIA COPELAND PA-C Location: [facility] Room/Bed: PROCEDURE: CT abdomen and pelvis without contrast. CLINICAL INDICATION: Abdominal pain. Vomiting. TECHNIQUE: CT scan of the abdomen and pelvis without contrast was performed and is reconstructed at 2.5 mm contiguous axial intervals from the dome of the diaphragm to the inferior pubic rami.. The patient was scanned without intravenous contrast. Sagittal and coronal reformatted images were obtained from the axial source images. The calculated radiation dose measures 371 mGy centimeters. The CTDI measures 7 mGy. Individualized dose optimization technique was used for the performance of this exam. This included 1. Automated exposure control. 2. Adjustment of the mA and / or kV according to the patient's size. 3. Use of iterative reconstructed technique. COMPARISON: None. FINDINGS: The lung bases are clear of any infiltrate or nodule. No effusion is seen. The liver is of normal size, contour and attenuation with no mass or ductal dilatation. No gallstones are visualized. No splenic, adrenal or pancreatic abnormalities present. Kidneys are of normal size and contour. No hydronephrosis, calculus or masses seen. Ureters are of normal course and caliber with no stone. No bladder mass or stone is present. Uterus is normal. No adnexal mass is present. There is no aneurysm. No adenopathy is present. There are visible but nonpathologically enlarged mesenteric nodes. No bowel mass or obstruction is present. The appendix is normal. No phlegmon , ascites or pneumoperitoneum is visualized. The osseous structures are intact. IMPRESSION: No evidence of urolithiasis, obstructive uropathy, diverticulitis or appendicitis. Visible but nonpathologically enlarged mesenteric nodes. Question mesenteric adenitis. .Oleg Borrego MD, MD Date Time Electronically viewed and signed by .Oleg Borrego MD, MD on 04/10/2017 13: 41 .A/ CC: CASSIA COPELAND PA-C Procedures/[facility] ED course: The patient's previous record was reviewed including her labs, swabs and imaging. Treatment included intravenous fluids, she was given normal saline 1 L as well as Zofran 4 mg and Pepcid 20 mg IV. Medical decision makin-year-old female presents with nausea, vomiting and diarrhea with abdominal pain, [place]'s include viral gastroenteritis, viral syndrome, UTI, pancreatitis, appendicitis, kidney stones, and among others. Patient's white blood cell count has decreased to normal, and chemistries unremarkable, without evidence of dehydration. CT abdomen pelvis shows evidence of enlarged lymph nodes in the mesenteric region, most likely indicative of mesenteric adenitis. The patient symptoms are most likely from a viral process, she initially presented with a sore throat and high fever. Labs were repeated today, her white blood cell count has normalized, chemistries normal she does have trace ketones in the urine that were treated with fluids in the emergency room. She was given Zofran and Pepcid as well as a GI cocktail and states that her pain is much better at this time. She will be advised to follow-up with her primary care doctor shortly next week. Her scan was negative for acute appendicitis or surgical abdominal process and stable for discharge. Departure Diagnosis: Primary Impression: Abdominal pain Additional Impression: Mesenteric adenitis Condition: CASSIA Damico PA-C Apr 10, 2017 12:55
--- NOTE | 2017-04-10 13:41 | RADRPT ---
PROCEDURE: CT abdomen and pelvis without contrast. CLINICAL INDICATION: Abdominal pain. Vomiting. TECHNIQUE: CT scan of the abdomen and pelvis without contrast was performed and is reconstructed a t 2.5 mm contiguous axial intervals from the dome of the diaphragm to the inferior pubic rami.. The patient was scanned without intravenous contrast. Sagittal and coronal reformatted images were obt ained from the axial source images. The calculated radiation dose measures 371 mGy centimeters. The CTDI measures 7 mGy. Individualized dose optimization technique was used for the performance of this exam. This included 1. Automated exposure control. 2. Adjustment of the mA and / or kV according to the patient's size. 3. Use of iterative reconstructed technique. COMPARISON: None. FINDINGS: The lung bases are clear of any infiltrate or nodule. No effusion is seen. The liver is of normal size, contour and attenuation with no mass or ductal dilatation. No gallston es are visualized. No splenic, adrenal or pancreatic abnormalities present. Kidneys are of normal size and contour. No hydronephrosis, calculus or masses seen. Ureters are o f normal course and caliber with no stone. No bladder mass or stone is present. Uterus is normal. N o adnexal mass is present. There is no aneurysm. No adenopathy is present. There are visible but nonpathologically enlarged mesenteric nodes. No bowel mass or obstruction is present. The appendix is normal. No phlegmon, ascites or pneumop eritoneum is visualized. The osseous structures are intact. IMPRESSION: No evidence of urolithiasis, obstructive uropathy, diverticulitis or appendicitis. Visible but nonpathologically enlarged mesenteric nodes. Question mesenteric adenitis. .Oleg Borrego MD, MD Date Time Electronically viewed and signed by .Oleg Borrego MD, MD on 04/10/2017 13:41 .A/
[2017-04-10] MEDS ORDERED: LIDOCAINE/MYLANTA 40 ML BTL PO ONE (14:00)
[2017-04-10] MEDS ORDERED: DICY10CA60 PO (14:01)
[2017-04-10] MEDS ORDERED: ONDA4TAB14 PO (14:01)
[2017-04-10] MEDS ORDERED: RANI150T9 PO (14:01)
[2017-04-10 14:03] LABS: ADD UMIC NO; UR ASCORBIC ACID NEGATIVE (NEGATIVE); UR BILIRUBIN (Dip) NEGATIVE (NEGATIVE); UR BLOOD (Dip) NEGATIVE (NEGATIVE); UR CLARITY CLEAR (CLEAR); UR COLOR YELLOW (YELLOW); UR GLUCOSE (Dip) NEGATIVE (NEGATIVE); UR KETONES (Dip) TRACE mg/dL (NEGATIVE); UR LEUKOCYTE ESTERASE (Dip) NEGATIVE Leu/ul (NEGATIVE); UR NITRITE (Dip) NEGATIVE (NEGATIVE); UR SPECIFIC GRAVITY (Dip) 1.014 (1.003-1.030); UR TOTAL PROTEIN (Dip) NEGATIVE (NEGATIVE); UR UROBILINOGEN (Dip) NEGATIVE (NEGATIVE)
[2017-04-10 14:58] VITALS: BP 115/66; PULSE 112; RESP 18; TEMP 99.2
== END 2017-04-10 14:58 | disposition home or self-care (01) ==
LOC: FTE 10:53
DX: I88.0 Nonspecific mesenteric lymphadenitis (principal)
CPT/HCPCS: 36415; 74176; 80053; 81003; 83690; 84703; 85025; 96374; 96375; 96376; 99285; J2405; J7030; J2270

== ENCOUNTER 2018-12-03 16:38 | Emergency (ER) | payer OTHER ==
[~2018-12-03] VITALS: Ht 162.6 cm; Wt 58.5 kg
[~2018-12-03 16:38] MED LIST changes: +AZIT250T PO; -AZIT250T94 PO; +DICY10CA40 PO; +ONDA4TAB14 PO; +RANI150T35 PO
[2018-12-03 16:42] VITALS: Ht 162.6 cm; Wt 58.5 kg
--- NOTE | 2018-12-03 17:21 | ERD ---
ER Documentation Chief Complaint Chief Complaint chest pressure, palpitation, unprovoked, radiating neck & shoulder x4 days HPI This is a healthy 28-year-old woman complaining of 2 weeks of intermittent mild nonproductive cough and episodic shortness of breath for which she was prescribed an albuterol inhaler. Patient states she only used albuterol pump about 2-3 times over the last 2 weeks. She is also had 3 days of intermittent palpitations to the left chest lasting for a few seconds and sharp nonexertional nonradiating left-sided chest pain again usually lasting for a few seconds over the last 3 days. Patient states she took her last dose of oral contraceptive about a week ago. She denies calf or leg swelling, no fevers or chills, no URI symptoms, no headache or blurry vision. Patient's mom has a history of mitral valve prolapse diagnosed on echocardiogram years ago, so Sarah is worried she may also have MVP. ROS All systems reviewed and are negative except as per history of present illness. Medications Home Meds Active Scripts Ibuprofen* (Motrin*) 600 Mg Tab, 600 MG PO Q8 PRN for PAIN AND/OR INFLAMMATION, #30 TAB Prov:HALIMA YEUNG MD 12/03/18 Ranitidine Hcl* (Zantac*) 150 Mg Tablet, 150 MG PO BID PRN for EPIGASTRIC PAIN, #30 TAB Prov:CASSIA COPELAND PA-C 04/10/17 Dicyclomine HCl (Dicyclomine HCl) 10 Mg Capsule, 10 MG PO QID, #20 CAP Prov:CASSIA COPELAND PA-C 04/10/17 Ondansetron (Ondansetron Odt) 4 Mg Tab.rapdis, 4 MG PO Q6H PRN for NAUSEA AND/OR VOMITING, #10 TAB Prov:CASSIA COPELAND PA-C 04/10/17 Ibuprofen* (Motrin*) 600 Mg Tab, 600 MG PO Q6, #30 TAB Prov:CINDY CURRAN PA-C 04/05/17 Azithromycin* (Zithromax*) 250 Mg Tablet, 250 MG PO .ZPACK DIRECTED, #6 TAB TAKE 500 MG (2 TABS) THE FIRST DAY THEN 250 MG (1 TAB) DAYS 2-5 Prov:CINDY CURRAN PA-C 04/05/17 Allergies Allergies: Coded Allergies: epinephrine (Verified Allergy, Unknown, 04/04/17) PMhx/Soc Medical and Surgical Hx: pt denies Medical Hx, pt denies Surgical Hx Hx Alcohol Use: No Hx Substance Use: No Hx Tobacco Use: No Smoking Status: Never smoker FmHx Family History: No diabetes Physical Exam Vitals Vital Signs Date Temp Pulse Resp B/P (MAP) Pulse Ox O2 O2 Flow FiO2 Time Delivery Rate 12/03/18 99.1 93 15 121/86 100 Room Air 17:28 (98) 12/03/18 98.4 88 18 131/71 97 16:42 (91) Physical Exam GENERAL: Well-developed, well-nourished, well-hydrated, in no apparent distress, looks nontoxic in appearance HEENT: Moist mucous membranes, pink conjunctiva, no cervical spine tenderness or step-off deformities, no goiter, no jaundice or icterus, extraocular movements intact without pain. No submandibular induration, and no pharyngeal erythema CARDIAC: Regular rate and rhythm, no murmurs rubs or gallops LUNGS: Clear bilaterally no wheezing crackles or stridor SKIN: Warm and dry to touch, no abrasions, contusions, or hematomas, no lacerations, no ecchymosis, no target lesions, and without ulcers EXTREMITIES: No clubbing cyanosis or edema, calves are bilaterally symmetrical, no Homans sign, no popliteal cord sign. Distal pulses equal and bilateral PSYCH: Normal affect without agitation or irritability Result Diagram: 12/03/18 1726 12/03/18 1726 Results 24 hrs Laboratory Tests Test 12/03/18 17:11 12/03/18 17:26 POC Beta HCG, Qualitative NEGATIVE White Blood Count 7.8 10^3/ul Red Blood Count 4.47 10^6/ul Hemoglobin 14.2 g/dl Hematocrit 43.3 % Mean Corpuscular Volume 96.9 fl Mean Corpuscular Hemoglobin 31.8 pg Mean Corpuscular Hemoglobin Concent 32.8 g/dl Red Cell Distribution Width 12.5 % Platelet Count 242 10^3/UL Mean Platelet Volume 10.0 fl Immature Granulocytes % 0.300 % Neutrophils % 42.6 % Lymphocytes % 46.3 % Monocytes % 6.4 % Eosinophils % 3.6 % Basophils % 0.8 % Nucleated Red Blood Cells % 0.0 /100WBC Immature Granulocytes # 0.020 10^3/ul Neutrophils # 3.3 10^3/ul Lymphocytes # 3.6 10^3/ul Monocytes # 0.5 10^3/ul Eosinophils # 0.3 10^3/ul Basophils # 0.1 10^3/ul Nucleated Red Blood Cells # 0.0 10^3/ul Sodium Level 139 mmol/L Potassium Level 4.2 mmol/L Chloride Level 104 mmol/L Carbon Dioxide Level 24 mmol/L Anion Gap 11 Blood Urea Nitrogen 15 mg/dl Creatinine 0.54 mg/dl Est Glomerular Filtrat Rate mL/min > 60 mL/min Glucose Level 81 mg/dl Calcium Level 10.0 mg/dl Troponin I < 0.012 ng/ml Procedures/MDM Patient placed on cardiac monitor technician rhythm strip revealed a sinus rhythm at about 90 bpm. Patient was afebrile. EKG performed, read by me: 95 bpm, normal sinus rhythm, normal axis, no acute ST segment changes, narrow QRS complex, with good R-wave progression in precordial leads. One AP view of the chest performed, read by me reveals no acute infiltrates, normal mediastinum, sharp costophrenic and cardiac borders, no air under the diaphragm. Otherwise unremarkable chest x-ray. CBC and electrolytes were normal, troponin was negative, urinalysis was negative for infection, test negative Patient's vital signs are normal, oxygen saturation is 100% and pulse is about 80 bpm and normal. Patient has no signs or symptoms of DVT/pulmonary embolism and can be managed as an outpatient. She may have MVP although this can be diagnosed as an outpatient with echocardiogram under her tearoom host/hostess's care. Differential diagnoses considered, included but not limited to acute coronary syndrome, pulmonary embolism, aortic dissection, abdominal aortic aneurysm, sepsis, stroke, meningitis, encephalitis, pneumonia, appendicitis, cholecystitis, bowel obstruction, pyelonephritis, nephrolithiasis, cystitis, as well as metabolic, hematologic, and electrolyte abnormalities. As well as abscess, cellulitis, fractures, and dislocations. Patient feels much better at this time, and vital signs are normal, symptoms have improved. I did give strict instructions to return to the ED if symptoms continue or worsen, patient will otherwise follow-up with primary care physician. Patient understood instructions and agreed to plan. Disclaimer: Inadvertent spelling and grammatical errors are likely due to EHR/dictation software use and do not reflect on the overall quality of patient care. Also, please note that the electronic time recorded on this note does not necessarily reflect the actual time of the patient encounter. Departure Diagnosis: Primary Impression: Chest pain Chest pain type: unspecified Qualified Codes: R07.9 - Chest pain, unspecified Additional Impression: Palpitations Condition: Good HALIMA YEUNG MD Dec 03, 2018 17:21
[2018-12-03] MEDS ORDERED: IBUP-1542 PO (18:10)
[2018-12-03 18:24] VITALS: BP 117/74; PULSE 72; RESP 16
== END 2018-12-03 18:29 | disposition home or self-care (01) ==
LOC: E/R 16:38
DX: R07.9 Chest pain, unspecified (principal); R00.2 Palpitations
CPT/HCPCS: 71045; 80048; 81001; 81025; 84484; 85025; 93005